=== PATIENT | female | born 1930 | race Caucasian/White ===

== ENCOUNTER 2020-01-17 12:06 | Inpatient (IN) | payer OTHER ==
--- NOTE | 2020-01-17 13:33 | PDOC ---
History of Present Illness - General Chief Complaint: Injury Stated Complaint: FALL History Source: Patient Exam Limitations: No Limitations - History of Present Illness Initial Comments: 01/17/20 13:42 89 yo F with a hx of HTN and DM (on metformin) and denies AC use presents to the emergency department with s/p unwitnessed fall last night. Per the patient' s granddaughter, the patient was walking around last night in the home when she pulled the mirror off the wall. The patient was found shortly after on the floor with the approximately 50 lb mirror was on top of her awake. The patient was brought to the emergency department because she was still having trouble ambulating where she is able to ambulate on her own volition at baseline. Per the patient, she does not remember the incident and currently denies pain. The patient is originally from [place] and was visiting her granddaughter last night in [facility]. Allergies: NKDA Past History - Past Medical History Allergies/Adverse Reactions: Allergies Allergy/AdvReac Type Severity Reaction Status Date / Time No Known Allergies Allergy Verified 01/17/20 12:11 Home Medications: Ambulatory Orders Atorvastatin Calcium 40 mg PO HS 01/17/20 Cyproheptadine [Periactin -] 4 mg PO DAILY 01/17/20 Furosemide [Lasix] 20 mg PO DAILY 01/17/20 Meloxicam 7.5 mg PO DAILY 01/17/20 Rivastigmine [Exelon Patch 9.5 mg/24 Hours -] 1 each TD DAILY 01/17/20 Aspirin Coated [Ecotrin -] 81 mg PO DAILY #30 tablet.ec 01/20/20 Lisinopril [Prinivil] 10 mg PO DAILY #30 tablet 01/20/20 Metoprolol Succinate [Toprol XL -] 150 mg PO DAILY #30 tab.sr.24h 01/20/20 Metoprolol Succinate [Toprol XL -] 150 mg PO DAILY #30 tab.sr.24h 01/20/20 Sitagliptin Phosphate [Januvia] 50 mg PO DAILY #30 tablet 01/20/20 COPD: No Dementia: Yes Diabetes: Yes HTN: Yes - Surgical History Cholecystectomy: Yes - Psycho Social/Smoking Cessation Hx Smoking History: Never smoked Have you smoked in the past 12 months: No Information on smoking cessation initiated: No Hx Alcohol Use: No Drug/Substance Use Hx: No Review of Systems - Review of Systems Able to Perform ROS?: No (dementia) *Physical Exam - Vital Signs Last Vital Signs Temp Pulse Resp BP Pulse Ox 97.4 F L 75 18 185/91 H 99 01/17/20 12:11 01/17/20 12:11 01/17/20 12:11 01/17/20 12:11 01/17/20 12:52 - Physical Exam General Appearance: Yes: Nourished, Appropriately Dressed. No: Apparent Distress, Intoxicated HEENT: positive: EOMI, GRAYSON, Normal ENT Inspection, Normal Voice, Symmetrical, TMs Normal, Pharynx Normal, Hearing Grossly Normal. negative: Pale Conjunctivae , Scleral Icterus (R), Scleral Icterus (L), Muffled/Hoarse voice, Pharyngeal Erythema, Tonsillar Exudate, Tonsillar Erythema, Nasal Congestion, Rhinorrhea, Excessive drooling Neck: positive: Trachea midline, Supple. negative: Tender, Lymphadenopathy (R) , Lymphadenopathy (L), Tender lateral, Tender midline Respiratory/Chest: positive: Lungs Clear, Normal Breath Sounds. negative: Chest Tender, Respiratory Distress, Accessory Muscle Use, Crackles, Rales, Rhonchi, Stridor, Wheezing Cardiovascular: positive: Regular Rhythm, Regular Rate, S1, S2. negative: Systolic Murmur Gastrointestinal/Abdominal: positive: Normal Bowel Sounds, Flat, Soft. negative : Tender, Distended, Guarding, Rebound, Tenderness Lymphatic: negative: Adenopathy Musculoskeletal: positive: Normal Inspection. negative: CVA Tenderness, Vertebral Tenderness Extremity: positive: Normal Capillary Refill, Normal Inspection, Normal Range of Motion, Tender (right lateral malleolus with inferior and posterior tenderness to palpation). negative: Swelling, Calf Tenderness Integumentary: positive: Normal Color, Dry, Warm. negative: Hives, Petechiae, Rash Neurologic: positive: Alert, Normal Mood/Affect, Motor Strength 5/5, Other. negative: Fully Oriented (oriented to self only; at baseline), EOM Palsy, Facial Droop, Numbness, Sensory Deficit ED Treatment Course - LABORATORY CBC & Chemistry Diagram: 01/19/20 06:23 01/20/20 06:14 Medical Decision Making - Medical Decision Making Initial vitals: Initial Vital Signs Temp Pulse Resp BP Pulse Ox 97.4 F L 75 18 185/91 H 98 01/17/20 12:11 01/17/20 12:11 01/17/20 12:11 01/17/20 12:11 01/17/20 12:11 Work up: patient presents s/p fall vs syncope in the home of the granddaughter. it was witnessed, thus unclear etiology. will assess cardiac vs neurogenic vs hypovolemic vs metabolic derangement vs infectious etiology. Will obtain foot xray, right ribs xray (due to tenderness in the posterior rib cage), cxr, pelvis xray, lumbar/sacral spine CT, cervical spine CT, and head CT. Laboratory Tests 01/17/20 01/17/20 01/17/20 14:30 14:30 17:02 WBC 5.4 RBC 4.24 Hgb 12.5 Hct 37.0 MCV 87.2 MCH 29.4 MCHC 33.7 RDW 14.5 Plt Count 213 MPV 8.4 Absolute Neuts (auto) 3.8 Neutrophils % 69.7 Lymphocytes % 22.0 Monocytes % 5.5 Eosinophils % 2.1 Basophils % 0.7 Nucleated RBC % 0 PT with INR INR Sodium 139 Potassium 3.8 Chloride 106 Carbon Dioxide 26 Anion Gap 7 L BUN 11.8 Creatinine 0.8 Est GFR (CKD-EPI)AfAm 75.76 Est GFR (CKD-EPI)NonAf 65.36 POC Glucometer Random Glucose 128 H Hemoglobin A1c % Calcium 9.1 Phosphorus Magnesium Total Bilirubin 1.5 H Direct Bilirubin AST 20 ALT 28 Alkaline Phosphatase 138 H Creatine Kinase 115 Troponin I 0.03 0.03 Total Protein 6.9 Albumin 3.7 TSH 1.19 Urine Color Urine Appearance Urine pH Ur Specific [place] Urine Protein Urine Glucose (UA) Urine Ketones Urine Blood Urine Nitrite Urine Bilirubin Urine Urobilinogen Ur Leukocyte Esterase Urine WBC (Auto) Urine RBC (Auto) Urine Casts (Auto) U Epithel Cells (Auto) Urine Bacteria (Auto) 01/17/20 01/17/20 01/18/20 17:15 21:11 07:59 WBC RBC Hgb Hct MCV MCH MCHC RDW Plt Count MPV Absolute Neuts (auto) Neutrophils % Lymphocytes % Monocytes % Eosinophils % Basophils % Nucleated RBC % PT with INR INR Sodium Potassium Chloride Carbon Dioxide Anion Gap BUN Creatinine Est GFR (CKD-EPI)AfAm Est GFR (CKD-EPI)NonAf POC Glucometer 120 Random Glucose Hemoglobin A1c % Calcium Phosphorus Magnesium Total Bilirubin Direct Bilirubin AST ALT Alkaline Phosphatase Creatine Kinase Troponin I 0.03 Total Protein Albumin TSH Urine Color Yellow Urine Appearance Clear Urine pH 7.5 Ur Specific [place] 1.023 Urine Protein Negative Urine Glucose (UA) Negative Urine Ketones Negative Urine Blood Negative Urine Nitrite Negative Urine Bilirubin Negative Urine Urobilinogen 1.0 Ur Leukocyte Esterase 1+ H Urine WBC (Auto) 12 Urine RBC (Auto) 1 Urine Casts (Auto) 1 U Epithel Cells (Auto) 4.2 Urine Bacteria (Auto) 55.4 The following imaging was negative for acute fracture and dislocation: CT cervical spine, lumbar spine CT, foot xray, CXR, rib xray. No acute intracranial process noted in the head CT The patient's initial EKG showed biphasic T wave in V2-V3. Without a previous EKG to compare, a second troponin was ordered (initial was negative). Second troponin was negative At the time of admission, the patient had a repeat EKG that showed LBBB when the ventricular rate was in the 80s as opposed to when it was in the low 60s for the initial EKG with the biphasic T wave. The patient denied having chest pain and was resting comfortably with normal vitals. A third EKG was performed which also showed LBBB with elevated ventricular rate. repeat troponin (3rd draw) was negative Cardiology mononitrotoluene operator was paged. Per cardiology, this is a rate related bundle branch block. The HR when slower will not have fatigued BB. In faster bpm, the BB, in this case the LBB, fatigues resulting in transient LBBB that is not sustained at the lower heart rate. Unlikely to being having ACS. Per cardiology they will follow up with the patient in the morning Patient also noted to have UTI on UA. No symptoms reported per the patient. Discharge - Discharge Information Problems reviewed: Yes Clinical Impression/Diagnosis: LBBB (left bundle branch block), Syncope and collapse Condition: Stable - Follow up/Referral - Patient Discharge Instructions - Post Discharge Activity
[2020-01-17] MEDS ORDERED: SODIUM CHLORIDE 500 ML IV STA (13:51)
[2020-01-17] MEDS ORDERED: ACETAMINOPHEN 1000 MG/100 ML VIAL (NON FORMULARY) IVPB ONE (13:51)
[2020-01-17] MEDS ORDERED: ACETAMINOPHEN INJECTION 100 ML IVPB ONE (14:31)
[2020-01-17 14:57] LABS: BASO % 0.7 % (0-2.0); EOS % 2.1 % (0-4.5); HEMOGLOBIN 12.5 GM/dL (10.7-15.3); MCH 29.4 pg (25.7-33.7); MCHC 33.7 g/dl (32.0-36.0); MEAN CELL VOLUME 87.2 fl (80-96); MEAN PLT VOLUME 8.4 fl (7.5-11.1); MONO % 5.5 % (3.8-10.2); NEUT % 69.7 % (42.8-82.8); PLATELET COUNT 213 K/MM3 (134-434); RBC 4.24 M/mm3 (3.60-5.2); RDW 14.5 % (11.6-15.6); WHITE BLOOD COUNT 5.4 K/mm3 (4.0-10.0)
[2020-01-17 15:40] LABS: ALBUMIN 3.7 g/dl (3.4-5.0); BILIRUBIN,TOTAL 1.5 mg/dL (0.2-1); BLOOD UREA NITROGEN 11.8 mg/dL (7-18); CALCIUM 9.1 mg/dL (8.5-10.1); CREATININE 0.8 mg/dL (0.55-1.3); POTASSIUM 3.8 mmol/L (3.5-5.1); TOT PROT 6.9 g/dl (6.4-8.2)
--- NOTE | 2020-01-17 16:24 | PDOC ---
Documentation entered by Eladio Lopez SCRIBE, acting as scribe for Eloy Daniel MD. Eloy Daniel MD: This documentation has been prepared by the John villar Angel, SCRIBE, under my direction and personally reviewed by me in its entirety. I confirm that the documentation accurately reflects all work, treatment, procedures, and medical decision making performed by me. Attending Attestation - Resident Resident Name: Harshad Lai - ED Attending Attestation I have performed the following: I have examined & evaluated the patient, The case was reviewed & discussed with the resident, I agree w/resident's findings & plan, Exceptions are as noted - HPI HPI: 01/17/20 14:37 The patient is an 89 year old female with a significant PMH of HTN and DM (on metformin) who presents to the ED right lower back pain and difficulty ambulating s/p fall last night. Pts granddaughter at bedside states the patient pulled on a mirror which she thought was a door which caused the mirror to fall on her. Family heard the patient scream and went to check on the patient , finding her on the floor. Allergies: NKDA PCP: Dr. Magdaleno, Nandiin - Physicial Exam PE: 01/17/20 16:19 Patient is awake and alert, well-nourished, in no distress Normocephalic, atraumatic No hemotympanum, no mastoid ecchymoses bilaterally PERRLA, EOMI Neck is supple, no midline tenderness to palpation CTA, right-sided posterior thoracic tenderness to palpation along intercostal spaces 8 through 10 RRR abdomen is soft, nontender, nondistended Pelvis is stable Bilateral dorsal hand ecchymoses with no snuffbox tenderness; r. ankle lateral malleous tp; nv intact distally Oriented to self only (at baseline), moving all extremities symmetrically, ambulates with out assistance 01/17/20 16:22 - Medical Decision Making 01/17/20 16:22 Patient is a in the ER, patient is awake and alert, GCS-15. 89-year-old female with history of dementia who presents to the ER with traumatic back and ankle and hand injuries after being found on the floor by family members 12 hours previously. It is unclear whether patient sustained a mechanical fall or a syncopal episode. Will obtain CT of head/cervical spine/LS spine to rule out acute traumatic injuries. Will obtain chest/rib/pelvic x-rays. Likely admission for syncope.
[2020-01-17 17:48] LABS: EPI CELLS 4.2 /HPF (0-5/HPF); HYALINE CASTS 1 /lpf (0-8); PH,URINE 7.5 (5.0-8.0); URINE APPEARANCE CLEAR; URINE BACTERIA 55.4 /hpf (NEGATIVE); URINE BILIRUBIN NEGATIVE (NEGATIVE); URINE COLOR YELLOW; URINE GLUCOSE (UA) NEGATIVE (NEGATIVE); URINE KETONE NEGATIVE (NEGATIVE); URINE LEUK ESTERASE 1+ (NEGATIVE); URINE NITRITE NEGATIVE (NEGATIVE); URINE PROTEIN NEGATIVE (NEGATIVE); URINE RBC 1 /hpf (0-4); URINE WBC 12 /hpf (0-5)
[2020-01-18] MEDS ORDERED: METOPROLOL TARTRATE 5 MG/5 ML VIAL IVPUSH ONE (01:53)
[2020-01-18] MEDS ORDERED: ACETAMINOPHEN 650 MG/20.3 ML ORAL SOLUTION (CUPS) PO PRN (01:56)
[2020-01-18] MEDS ORDERED: ACETAMINOPHEN 325 MG TABLET (FP) ONE (02:01)
--- NOTE | 2020-01-18 02:02 | HP ---
CHIEF COMPLAINT: unwitnessed fall PCP: HISTORY OF PRESENT ILLNESS: Pt is an 89 y/o F with PMH HTN, DM, Advanced Alzheimer's Dementia who presented to ED brought by daughter because of unwitnessed fall. Per daughter, pt is demented and cannot recall the event; this is her baseline. Daughter states that the patient was alone, walking in a hallway and family heard her scream out. They went to her and found her lying on the ground with a large (~50lb) mirror on top of her. Grace theorizes that pt may have thought the mirror was a doorway and tried to grab on and in so doing may have dislodged the mirror which subsequently fell on her. Pt presently has no complaints. She states she feels well, and truly does not remember these events. ROS negative. ER course was notable for: (1) EKG series done with development of LBBB. Cardio was consulted and found it to likely be rate related. Pt without symptoms. (2) (3) Recent Travel: denies PAST MEDICAL HISTORY: HTN, DM, Advanced Alzheimer's Dementia PAST SURGICAL HISTORY: Social History: Smoking: denies Alcohol: denies Drugs: denies Allergies No Known Allergies Allergy (Verified 01/17/20 12:11) HOME MEDICATIONS: Home Medications Medication Instructions Recorded Atorvastatin Calcium 40 mg PO HS 01/17/20 Cyproheptadine [Periactin -] 4 mg PO DAILY 01/17/20 Furosemide [Lasix] 20 mg PO DAILY 01/17/20 Meloxicam 7.5 mg PO DAILY 01/17/20 Metoprolol Succinate 50 mg PO DAILY 01/17/20 Rivastigmine [Exelon Patch 9.5 1 each TD DAILY 01/17/20 mg/24 Hours] REVIEW OF SYSTEMS CONSTITUTIONAL: Absent: fever, chills, diaphoresis, generalized weakness, malaise, loss of appetite, weight change HEENT: Absent: rhinorrhea, nasal congestion, throat pain, throat swelling, difficulty swallowing, mouth swelling, ear pain, eye pain, visual changes CARDIOVASCULAR: Absent: chest pain, syncope, palpitations, irregular heart rate, lightheadedness , peripheral edema RESPIRATORY: Absent: cough, shortness of breath, dyspnea with exertion, orthopnea, wheezing, stridor, hemoptysis GASTROINTESTINAL: Absent: abdominal pain, abdominal distension, nausea, vomiting, diarrhea, constipation, melena, hematochezia GENITOURINARY: Absent: dysuria, frequency, urgency, hesitancy, hematuria, flank pain, genital pain MUSCULOSKELETAL: Absent: myalgia, arthralgia, joint swelling, back pain, neck pain SKIN: Absent: rash, itching, pallor HEMATOLOGIC/IMMUNOLOGIC: Absent: easy bleeding, easy bruising, lymphadenopathy, frequent infections ENDOCRINE: Absent: unexplained weight gain, unexplained weight loss, heat intolerance, cold intolerance NEUROLOGIC: Absent: headache, focal weakness or paresthesias, dizziness, unsteady gait, seizure, mental status changes, bladder or bowel incontinence PSYCHIATRIC: Absent: anxiety, depression, suicidal or homicidal ideation, hallucinations. PHYSICAL EXAMINATION Vital Signs - 24 hr 01/17/20 01/17/20 01/17/20 12:11 12:52 22:31 Temperature 97.4 F L Pulse Rate 75 Pulse Rate [ 82 Left] Respiratory 18 18 Rate Blood Pressure 185/91 H Blood Pressure 188/92 H [Right Arm] O2 Sat by Pulse 98 99 93 L Oximetry (%) 01/17/20 22:32 Temperature Pulse Rate Pulse Rate [ Left] Respiratory Rate Blood Pressure Blood Pressure [Right Arm] O2 Sat by Pulse 93 L Oximetry (%) Gen: NAD, AAOx3 HEENT: NCAT, EOMI Neck: supple, no bruits Cardio: rrr, normal s1s2, systolic murmur 3/6 Pulm: cta b/l Posterior chest tenderness to palpation Ext: tenderness on palpation of feet/ankles Laboratory Results - last 24 hr 01/17/20 01/17/20 01/17/20 14:30 14:30 17:02 WBC 5.4 RBC 4.24 Hgb 12.5 Hct 37.0 MCV 87.2 MCH 29.4 MCHC 33.7 RDW 14.5 Plt Count 213 MPV 8.4 Absolute Neuts (auto) 3.8 Neutrophils % 69.7 Lymphocytes % 22.0 Monocytes % 5.5 Eosinophils % 2.1 Basophils % 0.7 Nucleated RBC % 0 Sodium 139 Potassium 3.8 Chloride 106 Carbon Dioxide 26 Anion Gap 7 L BUN 11.8 Creatinine 0.8 Est GFR (CKD-EPI)AfAm 75.76 Est GFR (CKD-EPI)NonAf 65.36 Random Glucose 128 H Calcium 9.1 Total Bilirubin 1.5 H AST 20 ALT 28 Alkaline Phosphatase 138 H Creatine Kinase 115 Troponin I 0.03 0.03 Total Protein 6.9 Albumin 3.7 TSH 1.19 Urine Color Urine Appearance Urine pH Ur Specific [place] Urine Protein Urine Glucose (UA) Urine Ketones Urine Blood Urine Nitrite Urine Bilirubin Urine Urobilinogen Ur Leukocyte Esterase Urine WBC (Auto) Urine RBC (Auto) Urine Casts (Auto) U Epithel Cells (Auto) Urine Bacteria (Auto) 01/17/20 01/17/20 17:15 21:11 WBC RBC Hgb Hct MCV MCH MCHC RDW Plt Count MPV Absolute Neuts (auto) Neutrophils % Lymphocytes % Monocytes % Eosinophils % Basophils % Nucleated RBC % Sodium Potassium Chloride Carbon Dioxide Anion Gap BUN Creatinine Est GFR (CKD-EPI)AfAm Est GFR (CKD-EPI)NonAf Random Glucose Calcium Total Bilirubin AST ALT Alkaline Phosphatase Creatine Kinase Troponin I 0.03 Total Protein Albumin TSH Urine Color Yellow Urine Appearance Clear Urine pH 7.5 Ur Specific [place] 1.023 Urine Protein Negative Urine Glucose (UA) Negative Urine Ketones Negative Urine Blood Negative Urine Nitrite Negative Urine Bilirubin Negative Urine Urobilinogen 1.0 Ur Leukocyte Esterase 1+ H Urine WBC (Auto) 12 Urine RBC (Auto) 1 Urine Casts (Auto) 1 U Epithel Cells (Auto) 4.2 Urine Bacteria (Auto) 55.4 ASSESSMENT/PLAN: Pt is an 89 y/o F with PMH HTN, DM, Advanced Alzheimer's Dementia who presented to ED brought by daughter because of unwitnessed fall and is being admitted to tele/obs. Unwitnessed fall -tele/obs -imaging in ED neg -echo R/O ACS -pt asymptomatic -trops neg x 3 -EKG with rate related LBBB -Cardio on board HTN -lopressor -c/w home toprol DM -BGM -ISS ACHS Visit type - Emergency Visit Emergency Visit: Yes ED Registration Date: 01/17/20 Care time: The patient presented to the Emergency Department on the above date and was hospitalized for further evaluation of their emergent condition. - New Patient This patient is new to me today: Yes Date on this admission: 01/18/20 - Critical Care Critical Care patient: No ATTENDING PHYSICIAN STATEMENT I saw and evaluated the patient. I reviewed the resident's note and discussed the case with the resident. I agree with the resident's findings and plan as documented. SUBJECTIVE: OBJECTIVE: ASSESSMENT AND PLAN:
--- NOTE | 2020-01-18 02:23 | PN ---
Teaching Attending Note Name of Resident: Rico Lisa ATTENDING PHYSICIAN STATEMENT I saw and evaluated the patient. I reviewed the resident's note and discussed the case with the resident. I agree with the resident's findings and plan as documented. SUBJECTIVE: 89-year-old woman with a history of advanced Alzheimer's dementia, diabetes mellitus, hypertension brought in with daughter status post unwitnessed fall on 01/17/2020. Daughter found patient down on the ground after she tried to lift a mirror. Patient was found on the ground with a mirror on top of her. Her only complaint was some mild back pain after the fall. Denied any shortness of breath, loss of consciousness, chest pain. OBJECTIVE: Last Vital Signs Temp Pulse Resp BP Pulse Ox 97.4 F L 84 20 186/91 H 93 L 01/17/20 12:11 01/18/20 01:50 01/18/20 01:50 01/18/20 02:06 01/18/20 01:50 On physical exam patient was a frail elderly female in no apparent distress. 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 No evidence of trauma to head, neck was supple with no JVD. Lungs are clear to auscultation bilaterally, heart sounds were S1 , S2 regular rate and rhythm. Abdomen was soft, nontender, bowel sounds present. Lower extremities with no pedal edema. Upper and lower extremities were not tender to palpation. Hips bilaterally not tender to palpation. Abnormal Lab Results 01/17/20 01/17/20 14:30 17:15 Anion Gap 7 L Random Glucose 128 H Total Bilirubin 1.5 H Alkaline Phosphatase 138 H Ur Leukocyte Esterase 1+ H Ribs right side x-rayno displaced rib fracture. Pelvis x-ray showed no fractures, right ankle/foot x-ray showed no acute osseous injury. Head and cervical spine CT did not show any acute fractures or dislocations. Serial EKG showed normal sinus rhythm with development of left bundle branch block which was discussed with cardiology on-call and determined to be rate dependent left bundle branch block. ASSESSMENT AND PLAN: 89-year-old woman status post fall at home with no signs of trauma on exam, imaging studies negative for any fractures, dislocations. MedSurg Bedrest and fall precautions Physical therapy evaluationpatient is noted to not be ambulating with any assistance Ibuprofen PRN if musculoskeletal pain status post fall Check CK to exclude rhabdomyolysis #Left bundle branch blocknegative troponins Cardiology evaluation Transthoracic echo #T bili, alk phos elevations Right upper quadrant ultrasound to exclude cholecystitis #Diabetes mellitus NovoLog sliding scale A1c Lisinopril for renal protection #Dementia Continue with home dose realistic mean #Severe uncontrolled hypertension Continue home dose metoprolol Lisinopril DVT prophylaxisheparin subcutaneously
[2020-01-18] MEDS ORDERED: ACETAMINOPHEN 325 MG TABLET (FP) PO PRN ×3 (03:52→20:52)
[2020-01-18] MEDS ORDERED: MELATONIN 5 MG TABLETS PO PRN ×2 (05:21→16:58)
[2020-01-18] MEDS ORDERED: HEPARIN NA (PORCINE) 5,000 UNITS/ML 1ML VIAL ONE (06:29)
[2020-01-18] MEDS: HEPARIN NA (PORCINE) 5,000 UNITS/ML 1ML VIAL SQ SCH ×3 (06:44→21:51)
[2020-01-18] MEDS ORDERED: LISINOPRIL 10 MG TABLET (FP) PO SCH (10:00)
[2020-01-18] MEDS ORDERED: FUROSEMIDE 20 MG TABLET (FP) PO SCH (10:00)
--- NOTE | 2020-01-18 14:24 | CON.CARD ---
Consult Consult Specialty:: cardiology Reason for Consultation:: LBBB - History of Present Illness History of Present Illness: 89-year-old woman with a history of advanced Alzheimer's dementia, diabetes mellitus, hypertension brought in with daughter status post unwitnessed fall on 01/17/2020. Daughter found patient down on the ground after she tried to lift a mirror. No chest pain, no prior CAD or heart failure. Noted to hae intermittent LBBB. KASIA negative. - History Source History Provided By: Family Member - Alcohol/Substance Use Hx Alcohol Use: No - Smoking History Smoking history: Never smoked Have you smoked in the past 12 months: No Home Medications - Allergies Allergies/Adverse Reactions: Allergies Allergy/AdvReac Type Severity Reaction Status Date / Time No Known Allergies Allergy Verified 01/17/20 12:11 - Home Medications Home Medications: Ambulatory Orders Atorvastatin Calcium 40 mg PO HS 01/17/20 Cyproheptadine [Periactin -] 4 mg PO DAILY 01/17/20 Furosemide [Lasix] 20 mg PO DAILY 01/17/20 Meloxicam 7.5 mg PO DAILY 01/17/20 Metoprolol Succinate 50 mg PO DAILY 01/17/20 Rivastigmine [Exelon Patch 9.5 mg/24 Hours] 1 each TD DAILY 01/17/20 Review of Systems Unable to obtain ROS, reason: dementia Vital Signs: Vital Signs Temperature 97.5 F L 01/18/20 12:18 Pulse Rate 72 01/18/20 13:43 Respiratory Rate 20 01/18/20 13:43 Blood Pressure 143/66 01/18/20 13:43 O2 Sat by Pulse Oximetry (%) 98 01/18/20 13:43 Constitutional: Yes: Well Nourished, No Distress, Calm Eyes: Yes: Conjunctiva Clear, EOM Intact HENT: Yes: Atraumatic, Normocephalic Neck: Yes: Supple, Trachea Midline Respiratory: Yes: Regular, CTA Bilaterally Gastrointestinal: Yes: Normal Bowel Sounds Cardiovascular: Yes: Regular Rate and Rhythm JVD: No Carotid Bruit: No PMI: Non-Displaced Heart Sounds: Yes: S1, S2 Murmur: No: Systolic Murmur, Diastolic Murmur Peripheral Pulses WNL: No - Other Data Labs, Other Data: CBC, BMP 01/17/20 14:30 01/17/20 14:30 Troponin, BNP 01/17/20 01/17/20 01/17/20 14:30 17:02 21:11 Troponin I 0.03 0.03 0.03 Troponin, BNP 01/17/20 01/17/20 01/17/20 14:30 17:02 21:11 Troponin I 0.03 0.03 0.03 NSR LBBB Imaging - Results Chest X-ray: Report Reviewed Problem List - Problems (1) LBBB (left bundle branch block) Code(s): I44.7 - LEFT BUNDLE-BRANCH BLOCK, UNSPECIFIED Assessment/Plan 89 F with HTN and dementia admitted with a mechanical fall. Has intermittent LBBB. She has rate related LBBB due to age related conduction disease of the left bundle. This does not represent myocardial ischemia or injury. Does not require telemetry. An echocardiogram is reasonable. If LV function is depressed medical therapy can be advised otherwise no specific treatment is recommended for this. Will see as needed.
--- NOTE | 2020-01-18 16:41 | PN ---
Progress Note (short form) - Note Progress Note: Subjective: no fever or chills. No N/V . No cp . No N/V Objective: Vital Signs: Last Vital Signs Temp Pulse Resp BP Pulse Ox 97.5 F L 72 20 143/66 98 01/18/20 12:18 01/18/20 13:43 01/18/20 13:43 01/18/20 13:43 01/18/20 13:43 Laboratory Results - last 24 hr 01/17/20 01/17/20 01/17/20 17:02 17:15 21:11 POC Glucometer Hemoglobin A1c % Troponin I 0.03 0.03 Urine Color Yellow Urine Appearance Clear Urine pH 7.5 Ur Specific [place] 1.023 Urine Protein Negative Urine Glucose (UA) Negative Urine Ketones Negative Urine Blood Negative Urine Nitrite Negative Urine Bilirubin Negative Urine Urobilinogen 1.0 Ur Leukocyte Esterase 1+ H Urine WBC (Auto) 12 Urine RBC (Auto) 1 Urine Casts (Auto) 1 U Epithel Cells (Auto) 4.2 Urine Bacteria (Auto) 55.4 01/18/20 01/18/20 07:59 10:34 POC Glucometer 120 Hemoglobin A1c % 7.2 H Troponin I Urine Color Urine Appearance Urine pH Ur Specific [place] Urine Protein Urine Glucose (UA) Urine Ketones Urine Blood Urine Nitrite Urine Bilirubin Urine Urobilinogen Ur Leukocyte Esterase Urine WBC (Auto) Urine RBC (Auto) Urine Casts (Auto) U Epithel Cells (Auto) Urine Bacteria (Auto) Physical Exam: NAD, MMM. Cv: RRR. Lungs: CATB . Abd: soft, NT, ND, NL BS. Ext: no edema or erythema. Not cooperative with neuro exam, but strength 5/5 in upper and lower extremities proximally and distally. no facial droop. Imaging: imaging studies were reviewed. Assessment/Plan: 89 y/o lady with h/o 89-year-old woman with h/o dementia, DM and HTN, who presented after a fall . 1- fall: mechanical , was lifting a heavy mirror . no LOC per daughter no recurrent falls. no use of cane or walker at home no fractures on CTs 2- LBBB: card input noted and appreciated - echo - no need for tele 3- Elevated LFTS: US with fatty liver - f/u with GI as out pt - Ok to cont statin . d/w her PCP regarding the benefit of statins at this age 4- HTN: cont lisinopril that was added last night. cont home lopressor and lasix. 5- DM : cont SSI 6- HLp : cont statin Possible dc tomorrow , pending echo and PT Visit type - Emergency Visit Emergency Visit: Yes ED Registration Date: 01/17/20 Care time: The patient presented to the Emergency Department on the above date and was hospitalized for further evaluation of their emergent condition. - New Patient This patient is new to me today: No - Critical Care Critical Care patient: No
[2020-01-18] MEDS ORDERED: METOPROLOL TARTRATE 5 MG/5 ML VIAL IVPB ONE (17:21)
--- NOTE | 2020-01-18 17:45 | RAPID ---
Physical Examination Vital Signs: Vital Signs Temperature 97.5 F L 01/18/20 12:18 Pulse Rate 72 01/18/20 13:43 Respiratory Rate 20 01/18/20 13:43 Blood Pressure 143/66 01/18/20 13:43 O2 Sat by Pulse Oximetry (%) 98 01/18/20 13:43 Rapid response called for tachycardia. Pt seen and asymptomatic. AOX 3. Pt vital signs: 158/107, 130 Hr, 97% O2 Sat PE: RRR, NL S1S2, no mrg, CTA b/l, no pitting edema b/l, Labs/Images: EKG showing sinus tach 130 (small p waves noted), pvc's and pac's noted. Impression: Sinus tachy Plan: transfer to tele s/w cardio who would like pt monitored on tele - IV lopressor 5 given, 50PO metoprolol one X dose given (succinate), increased her home dose to 100 metoprolol succinate starting tm - pt already medically optimized with BB, tim inhibitor Labs: CBC, BMP 01/17/20 14:30 01/17/20 14:30
[2020-01-18 18:32] VITALS: BMI 21.4
[2020-01-18] MEDS: MELATONIN 5 MG TABLETS PO PRN (21:50)
[2020-01-18] MEDS ORDERED: ATORVASTATIN CA 40 MG TABLET (FP) PO SCH ×3 (22:00)
[2020-01-18] MEDS ORDERED: HEPARIN NA (PORCINE) 5,000 UNITS/ML 1ML VIAL SQ SCH (22:00)
[2020-01-19] MEDS: HEPARIN NA (PORCINE) 5,000 UNITS/ML 1ML VIAL SQ SCH ×3 (05:56→21:43)
[2020-01-19 06:56] LABS: BASO % 0.3 % (0-2.0); EOS % 3.7 % (0-4.5); HEMATOCRIT 35.4 % (32.4-45.2); HEMOGLOBIN 11.9 GM/dL (10.7-15.3); LYMPH % 30.9 % (8-40); MCHC 33.6 g/dl (32.0-36.0); MEAN CELL VOLUME 86.3 fl (80-96); MEAN PLT VOLUME 8.9 fl (7.5-11.1); MONO % 8.7 % (3.8-10.2); NEUT % 56.4 % (42.8-82.8); PLATELET COUNT 222 K/MM3 (134-434); RDW 14.5 % (11.6-15.6); WHITE BLOOD COUNT 6.4 K/mm3 (4.0-10.0)
[2020-01-19 07:17] LABS: INR 1.31 (0.83-1.09); PROTHROMBIN TIME (PATIENT) 15.5 SEC (9.7-13.0)
[2020-01-19 07:27] LABS: ALBUMIN 3.1 g/dl (3.4-5.0); BILIRUBIN,DIRECT 0.7 mg/dL (0.0-0.2); BILIRUBIN,TOTAL 2.2 mg/dL (0.2-1); TOT PROT 6.4 g/dl (6.4-8.2)
[2020-01-19 07:29] LABS: ALBUMIN 3.1 g/dl (3.4-5.0); BILIRUBIN,TOTAL 2.1 mg/dL (0.2-1); BLOOD UREA NITROGEN 14.5 mg/dL (7-18); CALCIUM 9.2 mg/dL (8.5-10.1); CREATININE 0.9 mg/dL (0.55-1.3); MAGNESIUM 1.6 mg/dL (1.8-2.4); PHOSPHOROUS 4.3 mg/dL (2.5-4.9); POTASSIUM 3.1 mmol/L (3.5-5.1); TOT PROT 6.5 g/dl (6.4-8.2)
[2020-01-19] MEDS ORDERED: MAGNESIUM SULF 50% (8.12 MEQ/2 ML-1 GM VIAL) IVPB ONE (08:33)
[2020-01-19] MEDS ORDERED: POTASSIUM CHLORIDE TABS 20 MEQ TABLET.ER (FP) PO ONE (08:33)
--- NOTE | 2020-01-19 09:49 | EKG ---
Test Reason : Blood Pressure : / mmHG Vent. Rate : 078 BPM Atrial Rate : 078 BPM P-R Int : 146 ms QRS Dur : 140 ms QT Int : 454 ms P-R-T Axes : 049 003 103 degrees QTc Int : 517 ms SINUS RHYTHM POSSIBLE LEFT ATRIAL ENLARGEMENT LEFT BUNDLE BRANCH BLOCK ABNORMAL ECG WHEN COMPARED WITH ECG OF 17-JAN-2020 16:49, LEFT BUNDLE BRANCH BLOCK IS NOW PRESENT Confirmed by Navjot Tabor ([id number]) on 01/19/2020 9:48:55 AM Referred By: Confirmed By:Navjot Tabor
--- NOTE | 2020-01-19 09:52 | EKG ---
Test Reason : Blood Pressure : / mmHG Vent. Rate : 064 BPM Atrial Rate : 064 BPM P-R Int : 150 ms QRS Dur : 082 ms QT Int : 452 ms P-R-T Axes : 046 010 025 degrees QTc Int : 466 ms NORMAL SINUS RHYTHM WITH SINUS ARRHYTHMIA POSSIBLE LEFT ATRIAL ENLARGEMENT T WAVE ABNORMALITY, CONSIDER ANTERIOR ISCHEMIA ABNORMAL ECG NO PREVIOUS ECGS AVAILABLE Confirmed by Navjot Tabor ([id number]) on 01/19/2020 9:51:53 AM Referred By: Confirmed By:Navjot Tabor
[2020-01-19] MEDS ORDERED: FUROSEMIDE 20 MG TABLET (FP) PO SCH (10:00)
[2020-01-19] MEDS ORDERED: LISINOPRIL 10 MG TABLET (FP) PO SCH (10:00)
--- NOTE | 2020-01-19 10:32 | ECHO ---
Name: CATES SUMA Exam:Adult Echocardiogram Study Date: 01/19/2020 09:06 AM Age: 89 yrs Reason For Study: R/O CHF/ Height: 60 in Weight: 110 lb BSA: 1.4 m2 MMode/2D Measurements & Calculations IVSd: 1.1 cm Ao root diam: 2.9 cm LVIDd: 3.8 cm LA dimension: 3.4 cm LVIDs: 3.0 cm LVPWd: 1.2 cm LVPWs: 1.3 cm EDV(Teich): 62.7 ml ESV(Teich): 33.7 ml LVOT diam: 1.8 cm LVLd ap4: 6.6 cm EDV(MOD-sp4): 80.9 ml LVLs ap4: 5.4 cm ESV(MOD-sp4): 48.3 ml SV(MOD-sp4): 32.6 ml LAV (MOD-bp): 66.8 ml TAPSE: 2.2 cm RV S Quentin: 13.5 cm/sec Doppler Measurements & Calculations MV E max quentin: 60.1 cm/sec Ao V2 max: 167.9 cm/sec MV A max quentin: 80.5 cm/sec Ao max P.3 mmHg MV E/A: 0.75 Ao V2 mean: 114.0 cm/sec MV dec time: 0.20 sec Ao mean P.2 mmHg Ao V2 VTI: 32.1 cm AI P1/2t: 636.8 msec MAR(V,D): 1.6 cm2 AI max quentin: 366.1 cm/sec LV V1 max P.6 mmHg AI max P.7 mmHg LV V1 max: 107.2 cm/sec AI dec slope: 168.4 cm/sec2 MR max quentin: 562.0 cm/sec TR max quentin: 313.7 cm/sec MR max P.6 mmHg TR max P.6 mmHg PA V2 max: 131.7 cm/sec Med Peak E' Quentin: 5.2 cm/sec PA max P.9 mmHg Med E/e': 11.5 Lat Peak E' Quentin: 6.2 cm/sec Lat E/e': 9.7 Procedure Study Quality: Fair. Left Ventricle The left ventricle is normal in size. There is mild concentric left ventricular hypertrophy. Left remi tricular systolic function is mildly reduced. Ejection Fraction = 40-45%. The transmitral spectral Doppler roc w pattern is suggestive of impaired LV relaxation. There is mild global hypokinesis of the left ventricle. Right Ventricle The right ventricle is normal in size and function. Atria The left atrium is moderately dilated. Mitral Valve There is mild mitral valve thickening. There is mild to moderate mitral regurgitation. Tricuspid Valve The tricuspid valve is not well visualized, but is grossly normal. There is moderate tricuspid regurg itation. Right ventricular systolic pressure is elevated at 40-50mmHg. There is moderate pulmonary hypertensio n. Aortic Valve mildly calcified. No hemodynamically significant valvular aortic stenosis. Mild aortic regurgitation. Pulmonic Valve The pulmonic valve is not well visualized. Trace pulmonic valvular regurgitation. Great Vessels The aortic root is normal size. Pericardium/Pleura There is no pericardial effusion. Interpretation Summary LV: Normal size,mild LVH, mildly decreased systolic function, EF 40-45%, impaired relaxation RV: Normal LA: Moderately dilated Mild to moderate mitral regurgitation Moderate tricuspid regurgitation with mild to moderate pulmonary hypertension Mild calcified aortic valve with mild regurgitation. Navjot Tabor 01/19/2020 10:32 AM
[2020-01-19] MEDS: KCL 10 MEQ IVPB 10 MEQ/100 ML INFUS.BAG IVPB SCH ×2 (10:44→11:39)
[2020-01-19] MEDS: FUROSEMIDE 20 MG TABLET (FP) PO SCH (10:52)
[2020-01-19] MEDS: LISINOPRIL 10 MG TABLET (FP) PO SCH (10:52)
--- NOTE | 2020-01-19 14:34 | PN ---
Teaching Attending Note Name of Resident: Eligio Rivera ATTENDING PHYSICIAN STATEMENT I saw and evaluated the patient. I reviewed the resident's note and discussed the case with the resident. I agree with the resident's findings and plan as documented. SUBJECTIVE: limited historian, due to dementia. no pain except for her L arm at site of K infusion . No SOB , denies palpitations OBJECTIVE: NAD, MMM. Cv: RRR. Lungs: CATB . Abd: soft, NT, ND, NL BS. Ext: no edema or erythema. Assessment/Plan: 89 y/o lady with h/o 89-year-old woman with h/o dementia, DM and HTN, who presented after a fall . 1- Fall: mechanical VS syncope due to arrhythmias 2- Tachycardia: Frequent episodes of narrow complex tachy on tele , which are likely a fib. echo reviewed. - will get EKG - increase toprol to 150 mg daily - will d/w family using eliquis 2.5 bid for AC ( CHADSVASC of 6 ) . - Card input 3- Elevated LFTS: US with fatty liver . indirect bili has increased today - f/u with GI as out pt - hold statin 4- Systolic heart failure : likely she carries a chronic diagnosis as she is on lasix, and BB at home. looks euvolemic now - cont lasix - Cont BB - cont lisinopril ( added here for HTN) 5- HTN: cont lisinopril , lopressor and lasix. 5- DM: cont SSI dispo: pending stabilization of condition and Hr control . possibly tomorrow
--- NOTE | 2020-01-19 15:03 | PN ---
Physical Exam: SUBJECTIVE: Patient seen and examined at the bedside. Patient was confused and unable to answer questions appropriately. Unable to ROS due to advanced dementia. OBJECTIVE: Vital Signs Period Temp Pulse Resp BP Sys/Restrepo Pulse Ox Last 24 Hr 97.8 F-98.9 F 70-138 18-20 146-158/69-106 98-99 GENERAL: The patient is awake, alert, and not oriented. HEAD: Normal with no signs of trauma. EYES: Noted opacity of the R eye. Sclera anicteric. ENT:Oropharynx clear without exudates, moist mucous membranes. LUNGS: Breath sounds equal, clear to auscultation bilaterally, no wheezes, no crackles, no accessory muscle use. HEART: Regular rate and rhythm, S1, S2 with soft systolic ejection murmur. ABDOMEN: Soft, nontender, nondistended, normoactive bowel sounds, no guarding, no rebound, no masses. EXTREMITIES: 1+ pulses, warm, well-perfused, no edema. NEUROLOGICAL: Moving all limbs spontaneously and has 5/5 bilateral handgrip. Unable to fully comply with the rest of neurological exam. PSYCH: Confused. Mildly cooperative. Laboratory Results - last 24 hr 01/19/20 01/19/20 01/19/20 06:23 06:23 06:23 WBC 6.4 RBC 4.10 Hgb 11.9 Hct 35.4 MCV 86.3 MCH 29.0 MCHC 33.6 RDW 14.5 Plt Count 222 MPV 8.9 Absolute Neuts (auto) 3.6 Neutrophils % 56.4 Lymphocytes % 30.9 D Monocytes % 8.7 Eosinophils % 3.7 Basophils % 0.3 Nucleated RBC % 0 PT with INR 15.50 H INR 1.31 H Sodium 137 Potassium 3.1 L Chloride 103 Carbon Dioxide 25 Anion Gap 8 BUN 14.5 Creatinine 0.9 Est GFR (CKD-EPI)AfAm 65.70 Est GFR (CKD-EPI)NonAf 56.69 POC Glucometer Random Glucose 114 H Calcium 9.2 Phosphorus 4.3 Magnesium 1.6 L Total Bilirubin 2.1 H Direct Bilirubin AST 16 ALT 20 Alkaline Phosphatase 118 H Total Protein 6.5 Albumin 3.1 L 01/19/20 01/19/20 06:23 11:05 WBC RBC Hgb Hct MCV MCH MCHC RDW Plt Count MPV Absolute Neuts (auto) Neutrophils % Lymphocytes % Monocytes % Eosinophils % Basophils % Nucleated RBC % PT with INR INR Sodium Potassium Chloride Carbon Dioxide Anion Gap BUN Creatinine Est GFR (CKD-EPI)AfAm Est GFR (CKD-EPI)NonAf POC Glucometer 173 Random Glucose Calcium Phosphorus Magnesium Total Bilirubin 2.2 H Direct Bilirubin 0.7 H AST 14 L ALT 20 Alkaline Phosphatase 121 H Total Protein 6.4 Albumin 3.1 L Active Medications Generic Name Dose Route Start Last Admin Trade Name Freq PRN Reason Stop Dose Admin Acetaminophen 650 mg 01/18/20 20:52 Tylenol - PO Q6H PRN PAIN LEVEL 6-10 Furosemide 20 mg 01/19/20 10:00 01/19/20 10:52 Lasix - PO 20 mg DAILY [facility] Administration Heparin Sodium (Porcine) 5,000 unit 01/18/20 22:00 01/19/20 14:27 Heparin - SQ 5,000 unit TID [facility] Administration Lisinopril 10 mg 01/19/20 10:00 01/19/20 10:52 Prinivil PO 10 mg DAILY [facility] Administration Melatonin 5 mg 01/18/20 20:52 01/18/20 21:50 Melatonin PO 5 mg HS PRN Administration INSOMNIA Metoprolol Succinate 150 mg 01/20/20 10:00 Toprol Xl - PO DAILY [facility] ASSESSMENT/PLAN: Martha Bryson is an 89 y/o F with PMH HTN, DM, Advanced Alzheimer's Dementia admitted due to an unwitnessed fall. Unwitnessed fall - continued cardiac monitoring - noted afib on EKG and on monitor - after rapid response EKG noting afib with RVR with PVC and LBBB - cardiology consulted, recs appreciated - imaging in ED neg - echo noting mild LVH, EF 40-45%, impaired relaxation, moderately dilated LA, mild to moderate mitral regurg, moderate tricuspid regurg, mild aortic calcification and regurg - fall likely in setting of arrhythmia - Toprol 150mg daily Afib - Toprol 150mg daily - echo as above - monitor on telemetry - as per cardiology and family discussion, patient at increased risk of falls and family requests aspirin for thromboembolic prophylaxis HTN - continue home lisinopril, home lasix - increase Toprol to 150mg daily DM - BGM - ISS ACHS Elevated LFTs - U/S noting fatty infiltration vs hepatocellular disease - continued to monitor - will require outpatient GI f/u R renal simple cysts - will require outpatient nephrology f/u ?NPH and meningioma - will require outpatient neurology f/u HLD - continue home statin DVT PPx - on heparin 5000 units subq tid FEN - no standing fluids - continue to monitor electrolytes and replete as necessary, hypomagnesemia and hypokalemia noted and repleted - sodium controlled diet Dispo - continue to monitor on telemetry Visit type - Emergency Visit Emergency Visit: Yes ED Registration Date: 01/19/20 Care time: The patient presented to the Emergency Department on the above date and was hospitalized for further evaluation of their emergent condition. - New Patient This patient is new to me today: Yes Date on this admission: 01/19/20 - Critical Care Critical Care patient: No
--- NOTE | 2020-01-19 15:07 | EKG ---
Test Reason : Blood Pressure : / mmHG Vent. Rate : 083 BPM Atrial Rate : 083 BPM P-R Int : 152 ms QRS Dur : 142 ms QT Int : 434 ms P-R-T Axes : 034 -02 147 degrees QTc Int : 509 ms NORMAL SINUS RHYTHM POSSIBLE LEFT ATRIAL ENLARGEMENT LEFT BUNDLE BRANCH BLOCK ABNORMAL ECG WHEN COMPARED WITH ECG OF 17-JAN-2020 21:06, NO SIGNIFICANT CHANGE WAS FOUND Confirmed by Navjot Tabor ([id number]) on 01/19/2020 3:06:34 PM Referred By: DINESH SAWYER DR Confirmed By:Navjot Tabor
--- NOTE | 2020-01-19 16:00 | PN ---
Progress Note, Physician History of Present Illness: pt seen and examined today with family at bedside in [facility]. pt ambulatory to bathroom with assistance. - Current Medication List Current Medications: Active Medications Acetaminophen (Tylenol -) 650 mg PO Q6H PRN PRN Reason: PAIN LEVEL 6-10 Furosemide (Lasix -) 20 mg PO DAILY [facility] Last Admin: 01/19/20 10:52 Dose: 20 mg Heparin Sodium (Porcine) (Heparin -) 5,000 unit SQ TID [facility] Last Admin: 01/19/20 14:27 Dose: 5,000 unit Lisinopril (Prinivil) 10 mg PO DAILY [facility] Last Admin: 01/19/20 10:52 Dose: 10 mg Melatonin (Melatonin) 5 mg PO HS PRN PRN Reason: INSOMNIA Last Admin: 01/18/20 21:50 Dose: 5 mg Metoprolol Succinate (Toprol Xl -) 150 mg PO DAILY [facility] - Objective Vital Signs: Vital Signs Temperature 98.5 F 01/19/20 05:00 Pulse Rate 86 01/19/20 05:00 Respiratory Rate 20 01/19/20 05:00 Blood Pressure 146/77 01/19/20 05:00 O2 Sat by Pulse Oximetry (%) 99 01/18/20 21:00 Constitutional: Yes: No Distress, Calm Eyes: Yes: Conjunctiva Clear, EOM Intact HENT: Yes: Atraumatic, Normocephalic Neck: Yes: Supple, Trachea Midline Cardiovascular: Yes: Pulse Irregular, Murmur, S1, S2. No: Regular Rate and Rhythm, Bradycardia, Tachycardia, Bruit, JVD, Gallop, Rub, S3, S4, Varicosities Respiratory: Yes: Regular, CTA Bilaterally. No: Rales, Rhonchi, Wheezes Gastrointestinal: Yes: Normal Bowel Sounds, Soft. No: Distention, Tenderness Musculoskeletal: Yes: WNL Extremities: Yes: WNL Edema: No Peripheral Pulses WNL: Yes Peripheral Pulses: Left Doralis Pedis: 2+, Right Dorsalis Pedis: 2+ Neurological: Yes: Alert Psychiatric: Yes: Alert Labs: CBC, BMP 01/19/20 06:23 01/19/20 06:23 INR, PTT INR 1.31 (0.83-1.09) H 01/19/20 06:23 - ....Imaging Chest X-ray: Report Reviewed, Image Reviewed EKG: Report Reviewed, Image Reviewed Other: Report Reviewed, Image Reviewed (tele-afib with periods of mild rvr and rate related lbbb) Assessment/Plan 89 F with HTN and dementia admitted with a mechanical fall. Has intermittent LBBB. Afib -with mild RVR and rate related LBBB -echo showed mildly reduced LVEF, mild to mod mr, mod tr, mild to mod pah -HR is mildly above goal -agree with inc Toprol to 150mg daily -monitor tele overnight -d/w family in regards to risk vs benefit of full AC. pt has alzheimers dementia and had a recent fall. likely significant risk with AC of injury and bleed. They expressed clear understanding of the risks benefits and alternatives. Family requests to use ASA 81mg daily alone for thromboembolic ppx. no evidence of ischemia, would not pursue further ischemic evaluation at this time. cardiomyopathy -cont toprol and lisinopril -euvolemic currently, can cont low dose po lasix
[2020-01-19] MEDS: ASPIRIN COATED 81 MG TABLET.EC PO SCH (17:28)
[2020-01-20] MEDS: MELATONIN 5 MG TABLETS PO PRN (03:00)
[2020-01-20] MEDS: HEPARIN NA (PORCINE) 5,000 UNITS/ML 1ML VIAL SQ SCH (05:35)
[2020-01-20 05:36] VITALS: PULSE 75
[2020-01-20 07:26] LABS: INR 1.18 (0.83-1.09); PROTHROMBIN TIME (PATIENT) 13.9 SEC (9.7-13.0)
[2020-01-20 07:40] LABS: ALBUMIN 3.3 g/dl (3.4-5.0); BILIRUBIN,TOTAL 1.4 mg/dL (0.2-1); BLOOD UREA NITROGEN 20.4 mg/dL (7-18); MAGNESIUM 2.3 mg/dL (1.8-2.4); TOT PROT 6.6 g/dl (6.4-8.2)
[2020-01-20] MEDS: FUROSEMIDE 20 MG TABLET (FP) PO SCH (09:04)
[2020-01-20] MEDS: ASPIRIN COATED 81 MG TABLET.EC PO SCH (09:04)
[2020-01-20] MEDS: LISINOPRIL 10 MG TABLET (FP) PO SCH (09:04)
--- NOTE | 2020-01-20 09:50 | PN ---
Progress Note, Physician Chief Complaint: no complaints tele nsr History of Present Illness: 89 F with HTN and dementia admitted with a mechanical fall. Has intermittent LBBB. tele showed PAF converted to NSR. - Current Medication List Current Medications: Active Medications Acetaminophen (Tylenol -) 650 mg PO Q6H PRN PRN Reason: PAIN LEVEL 6-10 Aspirin (Ecotrin -) 81 mg PO DAILY [facility] Last Admin: 01/20/20 09:04 Dose: 81 mg Furosemide (Lasix -) 20 mg PO DAILY [facility] Last Admin: 01/20/20 09:04 Dose: 20 mg Heparin Sodium (Porcine) (Heparin -) 5,000 unit SQ TID [facility] Last Admin: 01/20/20 05:35 Dose: 5,000 unit Lisinopril (Prinivil) 10 mg PO DAILY [facility] Last Admin: 01/20/20 09:04 Dose: 10 mg Melatonin (Melatonin) 5 mg PO HS PRN PRN Reason: INSOMNIA Last Admin: 01/20/20 03:00 Dose: 5 mg Metoprolol Succinate (Toprol Xl -) 150 mg PO DAILY [facility] Last Admin: 01/20/20 09:03 Dose: 150 mg - Objective Vital Signs: Vital Signs Temperature 97.8 F 01/20/20 05:35 Pulse Rate 75 01/20/20 05:35 Respiratory Rate 18 01/20/20 05:35 Blood Pressure 149/79 01/20/20 05:35 O2 Sat by Pulse Oximetry (%) 99 01/19/20 22:20 Constitutional: Yes: No Distress, Calm Eyes: Yes: Conjunctiva Clear, EOM Intact HENT: Yes: Normocephalic Neck: Yes: Trachea Midline Cardiovascular: Yes: Regular Rate and Rhythm Respiratory: Yes: CTA Bilaterally Gastrointestinal: Yes: Normal Bowel Sounds, Soft Musculoskeletal: Yes: WNL Extremities: Yes: WNL Edema: No Peripheral Pulses WNL: Yes Labs: CBC, BMP 01/19/20 06:23 01/20/20 06:14 INR, PTT INR 1.18 (0.83-1.09) H 01/20/20 06:14 Assessment/Plan 89 F with HTN and dementia admitted with a mechanical fall. Has intermittent LBBB. Afib -with mild RVR and rate related LBBB -echo showed mildly reduced LVEF, mild to mod mr, mod tr, mild to mod pah -HR is mildly above goal -agree with inc Toprol to 150mg daily -monitor tele overnight -d/w family in regards to risk vs benefit of full AC. pt has alzheimers dementia and had a recent fall. likely significant risk with AC of injury and bleed. They expressed clear understanding of the risks benefits and alternatives. Family requests to use ASA 81mg daily alone for thromboembolic ppx. no evidence of ischemia, would not pursue further ischemic evaluation at this time. cardiomyopathy -cont toprol and lisinopril -euvolemic currently, can cont low dose po lasix dc telemetry will see as needed.
[2020-01-20 10:49] VITALS: BP 149/76; TEMP 97.4
--- NOTE | 2020-01-20 14:55 | EKG ---
Test Reason : Blood Pressure : / mmHG Vent. Rate : 083 BPM Atrial Rate : 083 BPM P-R Int : 150 ms QRS Dur : 136 ms QT Int : 414 ms P-R-T Axes : 041 -03 147 degrees QTc Int : 486 ms NORMAL SINUS RHYTHM POSSIBLE LEFT ATRIAL ENLARGEMENT LEFT BUNDLE BRANCH BLOCK ABNORMAL ECG WHEN COMPARED WITH ECG OF 17-JAN-2020 19:31, FUSION COMPLEXES ARE NO LONGER PRESENT Confirmed by Abiel Truong MD ([id number]) on 01/20/2020 2:55:33 PM Referred By: Confirmed By:Abiel Truong MD
--- NOTE | 2020-01-20 15:41 | DS ---
Physical Exam: SUBJECTIVE: Patient seen and examined at the bedside. Stated that she felt well and denied acute pain. Was not answering all questions appropriately. Wanted to go home. OBJECTIVE: Vital Signs Period Temp Pulse Resp BP Sys/Restrepo Pulse Ox Last 24 Hr 97.4 F-98.5 F 71-118 18-22 140-149/76-81 95-99 PHYSICAL EXAM GENERAL: The patient is awake, alert, and not oriented. HEAD: Normal with no signs of trauma. EYES: Noted opacity of the R eye. Sclera anicteric. ENT: Oropharynx clear without exudates, moist mucous membranes. LUNGS: Breath sounds equal, clear to auscultation bilaterally, no wheezes, mild crackles bibasilar, no accessory muscle use. HEART: Normal rate and irregular rhythm, S1, S2 with soft systolic ejection murmur. ABDOMEN: Soft, nontender, nondistended, normoactive bowel sounds, no guarding, no rebound, no masses. EXTREMITIES: 1+ pulses, warm, well-perfused, no edema. NEUROLOGICAL: Moving all limbs spontaneously. Sensation intact to gross touch throughout. PSYCH: Confused. Mildly cooperative. LABS Laboratory Results - last 24 hr 01/20/20 01/20/20 01/20/20 05:46 06:14 06:14 PT with INR 13.90 H INR 1.18 H Sodium 138 Potassium 4.0 Chloride 104 Carbon Dioxide 25 Anion Gap 9 BUN 20.4 H Creatinine 1.0 Est GFR (CKD-EPI)AfAm 57.84 Est GFR (CKD-EPI)NonAf 49.91 POC Glucometer 119 Random Glucose 132 H Calcium 9.0 Magnesium 2.3 Total Bilirubin 1.4 H AST 14 L ALT 20 Alkaline Phosphatase 114 Total Protein 6.6 Albumin 3.3 L HOSPITAL COURSE: Martha Bryson is an 89 y/o F with PMH HTN, DM, Advanced Alzheimer's Dementia admitted due to an unwitnessed fall. Was noted on admission to have afib with RVR. Had Toprol 150mg started with good effect and afib was controlled. After cardiology and family discussion, patient at increased risk of falls and family requests aspirin for thromboembolic prophylaxis. Echo performed and noted mild LVH, EF 40-45%, impaired relaxation, moderately dilated LA, mild to moderate mitral regurg, moderate tricuspid regurg, mild aortic calcification and regurg. Patient's symptoms improved and was deemed stable for outpatient follow up as per cardiology. Was started on aspirin, Toprol 150mg, and lisinopril for BP control. While admitted, the patient was found with elevated LFTs and RUQ noted fatty infiltration vs hepatocellular disease and recommended for outpatient follow up. Was found with R renal cysts and advised for outpatient nephrology follow up. Was found with questionable NPH and meningioma and recommended for outpatient neurology follow up. Patient and family had discussion about plan to follow up with PCP, cardiology, nephrology, GI, and neurology and started on meds as above and family was in agreement. Patient was discharged in stable medical condition. Date of Admission:01/19/20 Date of Discharge: 01/20/20 Minutes to complete discharge: 35 Discharge Summary Problems reviewed: Yes Reason For Visit: SYNCOPE Condition: Stable - Instructions Diet, Activity, Other Instructions: You were admitted after you had a fall. You were noted to have an abnormal heart rhythm and had elevated heart rates (Atrial fibrillation) while you were in the hospital. Your medication for your heart rate was increased. You had an echocardiogram (ultrasound of the heart) which showed some enlargement of the heart, decreased function of the heart, impaired relaxation of the heart, and some valvular dysfunction. You were seen by the mechanical technician (heart doctor) who discussed starting a medication to prevent clotting and after a discussion with the family it was agreed to start you on daily aspirin. You had elevation of your liver enzymes while you were hospitalized and an ultrasound showed that our have fatty liver infiltration or liver disease. You are advised to follow up with a house wirer helper (stomach, liver, intestine doctor). You were noted to have some cysts on your kidneys. You are advised to follow up with a shook machine operator (kidney doctor). You were found to have a meningioma (mass in the head) and some questionable findings of enlargement of the ventricles (areas of fluid in the brain) and are advised to follow up with a neurologist for these findings. MEDICATIONS START to take Toprol. Take 1 (100mg tab) and 1 (50mg) daily for a total of 150mg daily. START to take aspirin 81mg once daily. START to take lisinopril 10mg once daily. Continue to take all of your home medication as prescribed. REFERRALS Please follow up with your primary care physician, Dr. Magdaleno, within 1 week. Please follow up with the mechanical technician, Dr. Fang, within 1 week. Please follow up with the house wirer helper, Dr. Trotter, within 2 weeks. Please follow up with the shook machine operator, Dr. Bowen, within 2 week. Please follow up with the neurologist, Dr. See, within 2 weeks. SPECIAL INSTRUCTIONS Make sure to follow up with all of your physicians. Please obtain labwork examining your electrolytes within 1 week at your primary care office. If you have any further symptoms of chest pain, palpitations, shortness of breath, dizziness, headaches, falls, or any other general feelings of unwellness , please call 911 or go to your nearest emergency room. Referrals: Josue See MD [Staff Physician] - 2 Weeks Luke Trotter DO [Staff Physician] - 2 Weeks Benoit Fang MD [Staff Physician] - 1 Week Nandini Magdaleno MD [Primary Care Provider] - 1 Week Mauro Bowen MD [Staff Physician] - 2 Weeks Disposition: HOME - Home Medications Comprehensive Discharge Medication List: Ambulatory Orders Atorvastatin Calcium 40 mg PO HS 01/17/20 Cyproheptadine [Periactin -] 4 mg PO DAILY 01/17/20 Furosemide [Lasix] 20 mg PO DAILY 01/17/20 Meloxicam 7.5 mg PO DAILY 01/17/20 Rivastigmine [Exelon Patch 9.5 mg/24 Hours -] 1 each TD DAILY 01/17/20 Aspirin Coated [Ecotrin -] 81 mg PO DAILY #30 tablet.ec 01/20/20 Lisinopril [Prinivil] 10 mg PO DAILY #30 tablet 01/20/20 Metoprolol Succinate [Toprol XL -] 150 mg PO DAILY #30 tab.sr.24h 01/20/20 Metoprolol Succinate [Toprol XL -] 150 mg PO DAILY #30 tab.sr.24h 01/20/20 Problem List - Problems (1) Atrial fibrillation Code(s): I48.91 - UNSPECIFIED ATRIAL FIBRILLATION (2) Syncope and collapse Code(s): R55 - SYNCOPE AND COLLAPSE (3) Diabetes mellitus Code(s): E11.9 - TYPE 2 DIABETES MELLITUS WITHOUT COMPLICATIONS (4) Hyperlipidemia Code(s): E78.5 - HYPERLIPIDEMIA, UNSPECIFIED (5) Hypertension Code(s): I10 - ESSENTIAL (PRIMARY) HYPERTENSION (6) LBBB (left bundle branch block) Code(s): I44.7 - LEFT BUNDLE-BRANCH BLOCK, UNSPECIFIED (7) Simple renal cyst Code(s): N28.1 - CYST OF KIDNEY, ACQUIRED This patient is new to me today: Yes Date on this admission: 01/20/20 Emergency Visit: No Critical Care patient: No - Discharge Referral Referred to [facility] Med [facility] Yes Physician Referral: Aamir Trotter DO (GI)
--- NOTE | 2020-01-20 18:31 | PN ---
Teaching Attending Note Name of Resident: Deepak Bess ATTENDING PHYSICIAN STATEMENT I saw and evaluated the patient. I reviewed the resident's note and discussed the case with the resident. I agree with the resident's findings and plan as documented. SUBJECTIVE: No fever or chills. No N/V. No [place]. No N/V . no palpitations OBJECTIVE: NAD, MMM. Cv: RRR. Lungs: CATB . Abd: soft, NT, ND, NL BS. Ext: no edema or erythema. Assessment/Plan: 89 y/o lady with h/o 89-year-old woman with h/o dementia, DM and HTN, who presented after a fall . 1- Fall: mechanical VS syncope due to arrhythmias. 2- New onset A fib. - cont toprol 150 mg. cont ASa, not a candidiate for full AC 3- Elevated LFTS: improved .can resumme statin 4- chronic Systolic heart failure : - cont lasix - Cont BB - cont lisinopril 5- HTN: cont lisinopril , lopressor and lasix. 5- DM: patient was not on DM meds at home. after she left today, it was relized she was not on any meds at dc . will send lichauvconor and will notify family tomorrow ( A1c 7.2 ) dose is 50 mg /daily as her cr clearance is 30% Dc home
--- NOTE | 2020-01-21 07:35 | PN ---
Progress Note (short form) - Note Progress Note: Call was placed to Nishi Bryson to discuss starting a new medication: Januvia for elevated A1c at 7.2%. [employer] was used from [employer] #[id number]. Discussed with Pt. the importance of following up with her PCP to haev her blood sugar checked and to have a repeat A1c done in 3 months. Decision was made to use Januvia over Metformin because of decreased likelihood of lowering glucose too much, given that A1c is only marginally elevated.
== END 2020-01-20 12:34 | disposition home or self-care (01) | DRG 309 ==
LOC: JER 12:06 → INTOOBSV 21:41 → JERBED 21:41 → J5S 01-18 17:02 → JERBED 01-18 20:22 → J4W 01-18 20:23 → OBSVTOIN 01-19 14:12
PROVIDERS: ADMIT Internal Medicine; ATTEND Internal Medicine
DX: I48.91 Unspecified atrial fibrillation (principal); I50.22 Chronic systolic (congestive) heart failure; R55 Syncope and collapse; I42.8 Other cardiomyopathies; I11.0 Hypertensive heart disease with heart failure; I44.7 Left bundle-branch block, unspecified; E11.9 Type 2 diabetes mellitus without complications; Z79.84 Long term (current) use of oral hypoglycemic drugs; G30.9 Alzheimer's disease, unspecified; F02.80 Dementia in other diseases classified elsewhere, unspecified severity, without behavioral disturbance, psychotic disturbance, mood disturbance, and anxiety; E78.5 Hyperlipidemia, unspecified; R00.0 Tachycardia, unspecified; N28.1 Cyst of kidney, acquired; I34.0 Nonrheumatic mitral (valve) insufficiency; I36.1 Nonrheumatic tricuspid (valve) insufficiency; K76.0 Fatty (change of) liver, not elsewhere classified; D32.9 Benign neoplasm of meninges, unspecified; W19.XXXA Unspecified fall, initial encounter; Y93.89 Activity, other specified; Y92.89 Other specified places as the place of occurrence of the external cause; Y99.8 Other external cause status
CPT/HCPCS: 36415; 70450-TC; 71045-TC-FY; 71101-TC-RT-FY; 72125-TC; 72131-TC; 72170-TC-FY; 73610-TC-RT-FY; 73630-TC-RT-FY; 76705-TC; 80053; 80076; 81003; 82550; 82962; 83036; 83735; 84100; 84443; 84484; 85025; 85610; 93005; 93010; 93306-TC; 97116-GP; 97161-GP; 99285-25; G0378; J0131; J1644